=== PATIENT | female | born 1990 | race Caucasian/White ===

== ENCOUNTER 2017-01-14 17:56 | Emergency (ER) | payer OTHER ==
[~2017-01-14] VITALS: Ht 170.2 cm; Wt 63.5 kg
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
[2017-01-14] MEDS ORDERED: ACETAMINOPHEN ES 500 MG TABLET ONE (18:09)
--- NOTE | 2017-01-14 18:22 | NUR ---
PT TO [facility]
[2017-01-14] MEDS ORDERED: ACETAMINOPHEN 325 MG TABLET PO ONE (18:30)
[2017-01-14] MEDS ORDERED: IBUPROFEN 600 MG TABLET PO ONE ×3 (20:00→20:07)
[2017-01-14 20:21] VITALS: BP 127/89
== END 2017-01-14 20:25 ==
LOC: ER 18:02 → EDBD 18:02 → ER 20:25
DX: R51 Headache (principal); M54.2 Cervicalgia; M25.511 Pain in right shoulder; M25.562 Pain in left knee; J45.909 Unspecified asthma, uncomplicated; Z88.2 Allergy status to sulfonamides; Y04.8XXA Assault by other bodily force, initial encounter; Y93.89 Activity, other specified; Y92.89 Other specified places as the place of occurrence of the external cause; Y99.8 Other external cause status
CPT/HCPCS: 70450; 70486; 72125; 73030; 73564; 99284; A4606; Z7610